=== PATIENT | female | born 2000 | race Two or more races ===

== ENCOUNTER 2020-04-20 12:03 | Emergency (ER) | payer MEDICAID ==
[~2020-04-20] VITALS: Ht 154.9 cm; Wt 65.8 kg
[2020-04-20 12:32] VITALS: BP 105/68
[2020-04-20 12:47] LABS: Urine Bacteria FEW /hpf (None Seen); Urine Blood Negative /uL (Negative); Urine Specific Gravity 1.012 (1.001-1.035); Urine WBC 4 /hpf (0 - 5)
[2020-04-20 13:07] LABS: Basophils # (auto) 0 10 ^3/uL (0-0.2); Eosinophils # (auto) 0.1 10 ^3/uL (0-0.8); Lymphocytes # (auto) 0.9 10 ^3/uL (0.4-5.4); Lymphocytes % (auto) 12.8 % (10.0-50.0); Monocytes # (auto) 0.5 10 ^3/uL (0-1.3); Neutrophils # (auto) 5.5 10 ^3/uL (1.6-8.6)
[2020-04-20 13:09] LABS: Basophils % (auto) 0.5 % (0.0-2.0); Hematocrit 32.6 % (36.0-46.0); Mean Corpuscular Hemoglobin 26.6 pg (28.0-32.0); Mean Corpuscular Hgb Conc. 33.7 g/dL (32.0-36.0); Mean Corpuscular Volume 78.9 fL (80.0-100.0); Neutrophils % (auto) 78.7 % (37.0-80.0); Platelet Count (auto) 288 10^3/uL (140-450); Red Blood Cells 4.13 10^6/uL (4.0-5.20); Red Cell Distribution Width 16.5 % (11.8-14.3)
[2020-04-20 13:26] LABS: Albumin 3.7 g/dL (3.4-5.0)
[2020-04-20 13:30] LABS: BUN/Creatinine Ratio 12.1; Bilirubin, Total 0.4 mg/dL (0.2-1.0); Total Protein 7.7 g/dL (6.4-8.2)
== END 2020-04-20 14:08 | disposition home or self-care (01) ==
LOC: ER 12:03
DX: N39.0 Urinary tract infection, site not specified (principal); F12.10 Cannabis abuse, uncomplicated; Z32.02 Encounter for pregnancy test, result negative
CPT/HCPCS: 36415; 76705; 80053; 81001; 81025; 83690; 85025